=== PATIENT | male | born 1975 | race Hispanic/Latino ===

== ENCOUNTER 2021-03-23 17:20 | Inpatient (IN) | payer SELFPAY ==
[2021-03-23] MEDS ORDERED: Dextrose 5% in Water 1,000 ML IV PRN (19:26)
[2021-03-23] MEDS ORDERED: Ondansetron ODT 4 MG TAB PO PRN (19:26)
[2021-03-23] MEDS ORDERED: Morphine 4 MG/ML VIAL SLOW IVP PRN ×2 (19:26)
[2021-03-23] MEDS ORDERED: hydrALAZINE 20 MG/ML VIAL SLOW IVP PRN (19:26)
[2021-03-23] MEDS ORDERED: Dextrose 50% Abboject 50 ML SYRINGE SLOW IVP PRN (19:26)
[2021-03-23] MEDS ORDERED: Ondansetron PF 4 MG/2 ML Vial IVP PRN (19:26)
[2021-03-23] MEDS ORDERED: Ibuprofen 600 MG TAB PO PRN (19:32)
[2021-03-23] MEDS ORDERED: Ketorolac Tromethamine 30 MG/ML VIAL IVP PRN (21:07)
[2021-03-23] MEDS: Famotidine 20 MG TAB PO SCH (21:23)
[2021-03-23 21:44] VITALS: BMI 21.9
[2021-03-23] MEDS ORDERED: ceFAZolin 2 GM/DEX 5% 100 ML BAG IVPB SCH (22:00)
[2021-03-23] MEDS: CEFAZOLIN 2 GM, Admixture Fee 1 EACH in Sodium Chloride 0.9% 100 ML IVPB SCH (23:19)
[2021-03-23] MEDS: Acetaminophen 500 MG TAB PO SCH (23:19)
[2021-03-23] MEDS: traMADol HCl 50 MG TAB PO SCH (23:20)
[2021-03-23] MEDS: Senokot S 8.6-50 MG TAB PO SCH (23:25)
[2021-03-24 04:47] LABS: #Eosinphils 0.3 thou/uL (0.0-0.7); #Lymphocytes 1.5 thou/uL (1.20-3.40); #Monocytes 0.6 thou/uL (0.11-0.59); #Neutrophils 4.2 thou/uL (1.40-6.50); %Basophils 0.1 % (0.0-1.0); %Eosinophils 3.9 % (0.0-10.0); %Lymphocytes 22.8 % (21.0-51.0); %Monocytes 9.1 % (0.0-10.0); %Neutrophils 64.1 % (42.0-75.0); Hemoglobin 13.3 g/dL (14.0-18.0); Mean Corpuscular HGB CONC 35.5 g/dL (32.0-36.0); Mean Corpuscular Hemoglobin 32.2 pg (27.0-31.0); Mean Corpuscular Volume 90.7 fL (78.0-98.0); Mean Platelet Volume 7.6 fL (7.4-10.4); Platelet Count 270 thou/uL (130-400); RBC Distribution Width 12.1 % (11.5-14.5); Red Blood Cell (RBC) Count 4.13 mill/uL (4.70-6.10); White Blood Cell (WBC) Count 6.6 thou/uL (4.8-10.8)
[2021-03-24] MEDS: Acetaminophen 500 MG TAB PO SCH ×4 (04:56→23:46)
[2021-03-24] MEDS: Cyclobenzaprine 10 MG TAB PO PRN ×2 (04:56→23:45)
[2021-03-24] MEDS: traMADol HCl 50 MG TAB PO SCH ×4 (04:57→23:45)
[2021-03-24 05:23] LABS: Anion Gap 12 mmol/L (10-20); BUN (Urea Nitrogen) 12 mg/dL (8.9-20.6); Calc. Creatinine Clearance 114 mL/min (70-130); Calcium 8.6 mg/dL (7.8-10.44); Carbon Dioxide 22 mmol/L (22-29); Chloride 108 mmol/L (98-107); Glucose 100 mg/dL (70-105); Potassium 3.7 mmol/L (3.5-5.1); Sodium 138 mmol/L (136-145)
[2021-03-24] MEDS: CEFAZOLIN 2 GM, Admixture Fee 1 EACH in Sodium Chloride 0.9% 100 ML IVPB SCH ×2 (05:28→14:55)
[2021-03-24] MEDS: Senokot S 8.6-50 MG TAB PO SCH ×2 (10:21→21:05)
[2021-03-24] MEDS: Famotidine 20 MG TAB PO SCH ×2 (10:21→21:05)
[2021-03-24] MEDS: Polyethylene Glycol 3350 17 GM Packet PO SCH (10:21)
[2021-03-24] MEDS: traMADol HCl 50 MG TAB PO PRN ×2 (11:31→18:14)
[2021-03-24] MEDS: Ibuprofen 600 MG TAB PO SCH ×2 (14:55→21:05)
[2021-03-24] MEDS: Gabapentin 300 MG CAP PO SCH ×2 (15:04→21:08)
[2021-03-25] MEDS: traMADol HCl 50 MG TAB PO PRN (02:43)
[2021-03-25] MEDS: traMADol HCl 50 MG TAB PO SCH ×2 (05:26→13:44)
[2021-03-25] MEDS: Acetaminophen 500 MG TAB PO SCH ×2 (05:27→13:43)
[2021-03-25] MEDS: Ibuprofen 600 MG TAB PO SCH ×2 (05:27→13:37)
[2021-03-25 08:24] VITALS: TEMP 98.2
[2021-03-25] MEDS: Gabapentin 300 MG CAP PO SCH (09:45)
[2021-03-25] MEDS: Famotidine 20 MG TAB PO SCH (09:45)
[2021-03-25] MEDS: Polyethylene Glycol 3350 17 GM Packet PO SCH (09:47)
[2021-03-25] MEDS: Senokot S 8.6-50 MG TAB PO SCH (09:48)
[2021-03-25 12:37] VITALS: BP 120/74
== END 2021-03-25 15:16 | disposition home or self-care (01) | DRG 536 ==
LOC: SURG B 17:20 → OBSVTOIN 19:26
PROVIDERS: ADMIT Surgery; ATTEND Surgery
DX: S32.392B Other fracture of left ilium, initial encounter for open fracture (principal); S71.012A Laceration without foreign body, left hip, initial encounter; F17.210 Nicotine dependence, cigarettes, uncomplicated; Z85.038 Personal history of other malignant neoplasm of large intestine; Z90.49 Acquired absence of other specified parts of digestive tract; Z90.79 Acquired absence of other genital organ(s); W40.8XXA Explosion of other specified explosive materials, initial encounter
CPT/HCPCS: 36415; 80048; 83735; 84100; 85025; J0690; J1885; J2270; J3490